=== PATIENT | male | born 1960 | race Hispanic/Latino ===

== ENCOUNTER 2019-07-08 10:21 | Outpatient (CLI) | payer BC | END 2019-07-08 10:22 | disposition home or self-care (01) | LOC: LABBT 10:21 | PROVIDERS: ATTEND Neurological Surgery | DX: Z01.818 Encounter for other preprocedural examination (principal); M54.16 Radiculopathy, lumbar region; M48.061 Spinal stenosis, lumbar region without neurogenic claudication | CPT/HCPCS: 93005; 93010 ==

== ENCOUNTER 2019-07-14 06:00 | Day surgery (SDC) | payer BC ==
[2019-07-08 10:27] VITALS: BMI 42.5
--- NOTE | 2019-07-13 22:22 | HP ---
HISTORY OF PRESENT ILLNESS: Mr. Melendez is a very pleasant 59-year-old gentleman here today to discuss severe lower back pain that he has chronically which over the last six months has started to involve his legs a lot more, describing classic claudication symptoms as well as left L5 radiculopathy. In addition, he has also noticed left-sided footdrop and he has treated this with [id number] medications and physical therapy. MRI from [facility] reveals severe central canal stenosis from L2-5, which did help off his symptoms. He attempted to see someone in the [place], but was never able to secure an appointment. REVIEW OF SYSTEMS: The patient reports back pain, leg pain, and leg weakness. Denies bowel or bladder issues. Denies dizziness or imbalance. PHYSICAL EXAMINATION: The patient is alert, oriented x3. Gait is antalgic, slowed and has slapping of the left foot when walking. Normal strength in all muscle movements of the left lower extremity, right lower extremity other than dorsiflexion at the ankle grading 4-/5. PAST MEDICAL HISTORY: Significant for diabetes, hypertension. CURRENT MEDICATIONS: Clonidine, nifedipine, losartan, hydrochlorothiazide, metformin. ALLERGIES: NO KNOWN DRUG ALLERGIES. ASSESSMENT: Lumbar stenosis and footdrop. PLAN: Dr. Fernandez met with the patient, reviewed imaging, advocated for an L2-L5 decompression. He explained to the patient the risks, benefits, and alternatives to the procedure. The patient expressed understanding and elected to move forward with surgery as discussed. I do believe the patient is mentally competent and capable of making medical decisions for himself. We will move forward with surgery as planned. Job ID: [id number]
[2019-07-14] MEDS ORDERED: Lidocaine 2% Jelly 5 ML TUBE ONE (06:36)
[2019-07-14] MEDS ORDERED: Fentanyl 100 MCG/2 ML VIAL ONE ×3 (06:36→10:52)
[2019-07-14] MEDS ORDERED: Thrombin 5000 UNITS/5 ML VIAL ONE (06:55)
[2019-07-14] MEDS ORDERED: Bupivacaine HCl 0.5%/Epinephrine 1:200,000/PF 30 ml Vial ONE (06:55)
[2019-07-14] MEDS ORDERED: Tamsulosin HCl 0.4 MG CAP ONE (10:25)
--- NOTE | 2019-07-14 10:37 | OP ---
DATE OF PROCEDURE: 07/14/2019 [employer] TENDER: Palmer Gonzalez PA-C INDICATION: Pain. DIAGNOSIS: Lumbar stenosis, lumbar radiculopathy, footdrop and numbness. ANESTHESIA: General. PROCEDURE: L2 through L5 lumbar decompression. DESCRIPTION OF PROCEDURE: The patient was brought into the operating room and placed under general anesthesia. He was flipped from the supine to prone position on the operating room table. A linear incision was planned spanning L2 through L5. After prepping and draping and after an appropriate operative pause, the incision was created. The soft tissues were swept away from midline. Self-retaining retractors were placed in the wound for optimal exposure. After confirming the appropriate levels with C-arm fluoroscopy, an Adson rongeur was used to remove the spinous process of L3, L4, as well as the inferior aspect of L2 and the superior aspect of L5. A high-speed cutting drill bit as well as 2, 3 and 4 mm Kerrisons were used to perform a laminectomy and complete the laminectomy extending from the inferior portion of L2 through the superior aspect of L5 in order to decompress the L2-L3, L3-L4, and L4-L5 segments. The laminectomies were extended laterally to encompass the medial aspect of the facet joints until the lateral recesses were also decompressed. The wound was then irrigated. Hemostasis was maintained throughout. The wound was then closed in anatomic layers and a pressure dressing was applied. There were no known procedural complications. Job ID: [id number]
[2019-07-14] MEDS ORDERED: Morphine 4 MG/ML VIAL ONE (10:57)
[2019-07-14] MEDS ORDERED: Acetaminophen/Codeine 30-300mg Tablet ONE (12:44)
== END 2019-07-14 16:00 | disposition home or self-care (01) ==
LOC: SDC 06:00
PROVIDERS: ATTEND Neurological Surgery
PROC: 01NB0ZZ Release Lumbar Nerve, Open Approach (ICD-10-PCS; principal; 2019-07-14)
DX: M48.062 Spinal stenosis, lumbar region with neurogenic claudication (principal); M54.16 Radiculopathy, lumbar region; M21.372 Foot drop, left foot; E78.5 Hyperlipidemia, unspecified; E11.9 Type 2 diabetes mellitus without complications; E66.9 Obesity, unspecified; Z68.41 Body mass index [BMI] 40.0-44.9, adult; Z79.84 Long term (current) use of oral hypoglycemic drugs; Z79.899 Other long term (current) drug therapy
CPT/HCPCS: 76000; J0131; J0670; J0690; J2270; J3010